=== PATIENT | female | born 1990 | race Caucasian/White ===

== ENCOUNTER 2018-03-27 01:45 | Inpatient (IN) | payer OTHER ==
[2018-03-27] MEDS ORDERED: SODIUM CHLORIDE 0.9% FLUSH 10 ML SOL IV PRN (01:51)
[2018-03-27] MEDS ORDERED: CARBOPROST 250 MCG/ML SOL IM PRN (01:51)
[2018-03-27] MEDS ORDERED: METHYLERGONOVINE MALEATE 0.2 MG/ML SOL IM PRN (01:51)
[2018-03-27] MEDS ORDERED: MEPIVACAINE HCL 1% MPF 30 ML/VIAL SOL INFIL PRN (01:51)
[2018-03-27] MEDS ORDERED: FENTANYL 100MCG/2ML SOL IV PRN (01:51)
[2018-03-27] MEDS ORDERED: OXYTOCIN 10000 MU/ML SOL IM PRN (01:51)
[2018-03-27] MEDS ORDERED: LACTATED RINGERS 1,000 ML IV PRN (01:51)
[2018-03-27] MEDS ORDERED: NALBUPHINE HCL 20 MG/ML SOL IV ONE (04:05)
[2018-03-27] MEDS: SODIUM CHLORIDE 0.9% FLUSH 10 ML SOL IV SCH ×2 (04:33→10:00)
[2018-03-27] MEDS ORDERED: NALOXONE HYDROCHLORIDE 0.4 MG/ML SOL IV PRN (05:31)
[2018-03-27] MEDS ORDERED: EPHEDRINE SULFATE 50 MG/ML SOL IV PRN (05:31)
[2018-03-27] MEDS ORDERED: DIPHENHYDRAMINE 50 MG/ML SOL IV PRN (05:31)
[2018-03-27 07:24] LABS: BASOPHILS % (AUTO) 0 % (0-3); EOSINOPHILS % (AUTO) 0 % (0-9); HEMATOCRIT 37 % (35-47); HEMOGLOBIN 12.2 gm/dl (12.0-15.5); LYMPHOCYTES % (AUTO) 7.7 % (10-50); MEAN CORPUSCULAR HEMOGLOBIN 30.4 pg (27.0-32.0); MEAN CORPUSCULAR HGB CONC 32.9 gm/dl (32.0-36.0); MEAN CORPUSCULAR VOLUME 92 fL (81-99); MONOCYTES % (AUTO) 2.4 % (0-12); NEUTROPHILS % (AUTO) 89.4 % (37-80)
[2018-03-27] MEDS ORDERED: [UNRECOGNIZED DRUG - OTHER] ONE ×3 (11:27→15:58)
[2018-03-27] MEDS: NALBUPHINE HCL 20 MG/ML SOL IV PRN ×3 (11:32→16:07)
[2018-03-27] MEDS: LACTATED RINGERS 1,000 ML IV SCH ×5 (12:04→23:20)
[2018-03-27] MEDS ORDERED: LIDOCAINE HCL 2% MPF 10 ML SOL ONE (14:04)
[2018-03-27] MEDS ORDERED: FENTANYL 250 MCG/ 5ML SOL ONE (16:22)
[2018-03-27] MEDS ORDERED: ROPIVACAINE HYDROCHLORIDE 5 MG/ML SOL ONE (16:22)
[2018-03-27] MEDS ORDERED: TERBUTALINE SULFATE 1 MG/ML SOL SC PRN (20:21)
[2018-03-27] MEDS ORDERED: LACTATED RINGERS 1,000 ML IV SCH (20:30)
[2018-03-27] MEDS ORDERED: OXYTOCIN 10000 MU/ML 20,000 MU in LACTATED RINGERS 1,000 ML IV SCH (20:30)
[2018-03-27] MEDS ORDERED: OXYTOCIN 10000 MU/ML SOL ONE (20:38)
[2018-03-27] MEDS ORDERED: LACTATED RINGERS 1,000 ML ONE (20:39)
[2018-03-28] MEDS ORDERED: FLEET ENEMA PR PRN (01:11)
[2018-03-28] MEDS ORDERED: TEMAZEPAM 15MG 15 MG CAP PO PRN (01:11)
[2018-03-28] MEDS ORDERED: METHYLERGONOVINE MALEATE 0.2 MG TAB PO PRN (01:11)
[2018-03-28] MEDS ORDERED: BENZOCAINE/MENTHOL 1 SPR TOP PRN (01:11)
[2018-03-28] MEDS ORDERED: WITCH HAZEL 1 EA PAD TOP PRN (01:11)
[2018-03-28] MEDS ORDERED: BISACODYL 10 MG SUP PR PRN (01:11)
[2018-03-28] MEDS: IBUPROFEN 600 MG TAB PO PRN ×3 (02:17→16:51)
[2018-03-28] MEDS: DOCUSATE SODIUM 100 MG SGL PO SCH ×2 (07:59→20:40)
[2018-03-28] MEDS: LACTATED RINGERS 1,000 ML IV SCH ×2 (08:00→18:44)
[2018-03-28] MEDS: APAP/HYDROCODONE 1 EACH TABLET PO PRN ×3 (08:07→20:41)
[2018-03-28] MEDS: SODIUM CHLORIDE 0.9% FLUSH 10 ML SOL IV SCH (09:59)
[2018-03-29 02:24] VITALS: RESP 16
[2018-03-29] MEDS: DOCUSATE SODIUM 100 MG SGL PO SCH (09:26)
[2018-03-29] MEDS: IBUPROFEN 600 MG TAB PO PRN (09:28)
[2018-03-29 09:54] VITALS: BP 134/94; PULSE 76; TEMP 98.1; O2SAT 98
== END 2018-03-29 15:20 | disposition home or self-care (01) | DRG 560 ==
LOC: OB 01:45 → OBSVTOIN 01:45 → OB 08:03
PROVIDERS: ADMIT Family Medicine; ATTEND Family Medicine
PROC: 10E0XZZ Delivery of Products of Conception, External Approach (ICD-10-PCS; principal; 2018-03-28)
DX: O80 Encounter for full-term uncomplicated delivery (principal); Z37.0 Single live birth; Z3A.40 40 weeks gestation of pregnancy
CPT/HCPCS: 36415; 59025; 85018; 85025; J0670; J2300; J2590; J2795; J3010; A9270-GY